=== PATIENT | male | born 1935 | race Caucasian/White ===

== ENCOUNTER 2021-12-26 00:49 | Emergency (ER) | payer MEDICARE, MEDICAID ==
[~2021-12-26] VITALS: Ht 167.6 cm; Wt 70.0 kg
[2021-12-26] MEDS ORDERED: HYDROCODONE/ACETAMINOPHEN 5/325MG TABLET PO ONE (01:30)
[2021-12-26] MEDS ORDERED: TETANUS, DIPHTHERIA, PERTUSSIS VAC/PF 0.5ML (>10YR OLD) IM ONE (01:30)
[2021-12-26] MEDS ORDERED: CEFAZOLIN 1000MG PREMIX 50 ML IV ONE (04:15)
[2021-12-26 04:19] LABS: HEMATOCRIT 40.1 % (42.0-52.0); HEMOGLOBIN 13.5 g/dL (14.0-18.0); MEAN CORPUSCULAR HEMOGLOBIN 30.6 pg (28.0-32.0); MEAN CORPUSCULAR VOLUME 90.8 fL (80.0-94.0); PLATELET 247 x1000/uL (130-400); RED BLOOD CELL COUNT 4.41 mill/uL (4.7-6.1)
[2021-12-26 04:21] LABS: CHLORIDE 110 mEq/L (98-107)
[2021-12-26 18:17] VITALS: BP 104/53
== END 2021-12-26 18:16 | disposition short-term general hospital (02) ==
LOC: ER 00:49 → CANBEDREQ 10:53 → ER 18:16
DX: S01.111A Laceration without foreign body of right eyelid and periocular area, initial encounter (principal); S02.2XXA Fracture of nasal bones, initial encounter for closed fracture; W18.39XA Other fall on same level, initial encounter; Y93.89 Activity, other specified; Y92.89 Other specified places as the place of occurrence of the external cause; Y99.8 Other external cause status; Z20.822 Contact with and (suspected) exposure to COVID-19
CPT/HCPCS: 36415; 70450; 70486; 72125; 80053; 85027; 87426; 90471; 90715; 96365; 99291; C9803; J0690